=== PATIENT | male | born 1970 | race Caucasian/White ===

== ENCOUNTER 2022-09-03 10:07 | Emergency (ER) | payer OTHER ==
[2022-09-03 10:40] VITALS: BP 148/85; PULSE 98; RESP 18; TEMP 98.4; BMI 26.6
== END 2022-09-03 12:18 | disposition home or self-care (01) ==
LOC: JERFT 10:07 → JER 10:07 → JERFT 12:18
PROC: 0HQFXZZ Repair Right Hand Skin, External Approach (ICD-10-PCS; principal; 2022-09-03)
DX: S61.411A Laceration without foreign body of right hand, initial encounter (principal); W25.XXXA Contact with sharp glass, initial encounter; Y93.E5 Activity, floor mopping and cleaning
CPT/HCPCS: 99282-25

== ENCOUNTER 2022-09-11 09:48 | Emergency (ER) | payer OTHER ==
[2022-09-11 09:52] VITALS: BP 134/77; PULSE 89; RESP 18; TEMP 97.9; BMI 27.0
== END 2022-09-11 11:29 | disposition home or self-care (01) ==
LOC: JERFT 09:48
DX: S61.411D Laceration without foreign body of right hand, subsequent encounter (principal); X58.XXXD Exposure to other specified factors, subsequent encounter; Z48.02 Encounter for removal of sutures
CPT/HCPCS: 99282-25